=== PATIENT | female | born 1945 | race Caucasian/White ===

== ENCOUNTER 2019-05-08 05:21 | Inpatient (IN) ==
[2019-05-07 13:15] LABS: Basophils # 0.1 10*3/uL (0.0-0.2); Basophils % 0.8 % (0.0-0.8); Eosinophils # 0.1 10*3/uL (0.0-0.87); Eosinophils % 1.8 % (0.00-10.9); Hematocrit 36.2 VOL% (35.7-47.0); Hemoglobin 10.8 GM/DL (12.0-16.0); Immature Granulocytes % 0.6 %; Immature Granulocytes Absolute 0.04 #; Lymphocytes # 1.5 10*3/uL (1.4-4.0); Lymphocytes % 21.7 % (21.3-54.2); Mean Corpuscular HGB Conc 29.8 GM/DL (32-36); Mean Corpuscular Volume 91.2 FL (87-102); Mean Platelet Volume 11.4 FL (9.6-12.0); Monocytes % 7.5 % (1.7-12.7); Neutrophils % 67.6 % (38.7-73.9); Platelet Count 222 T/CUMM (130-400); Red Blood Count 3.97 MC/CUMM (3.8-5.5); Red Cell Distribution Width 14.9 % (9.3-17.3); White Blood Count 7.1 T/CUMM (4-12)
[2019-05-07 13:22] LABS: PT Patient Result 10.5 SECS; Partial Thromboplastin Time 26.2 SECS (0-40)
[2019-05-07 13:41] LABS: Calcium 8.7 MG/DL (8.5-10.1); Osmolality,Calculated 277.5 MOS/KG (273-304)
[2019-05-07 14:02] LABS: Apearance,Urine CLEAR (Clear); Bilirubin,Urine Negative (Negative); Blood, Urine Negative (Negative); Glucose,Urine (UA) Negative (Negative); Ketones,Urine Negative (Negative); Mucus,Urine Occasional /LPF (Occasional); Nitrite,Urine Negative (Negative); Protein,Urine Negative; RBC,Urine <1 /HPF (0-4); Squamous Epithelial Cell,Urine Occasional /HPF (0-10); Urine Color Yellow (Yellow); Urine Specific Gravity 1.017 (1.001-1.035); Urine Urobilinogen < 2.0 EU/DL (0.2-1.0); WBC,Urine 7 /HPF (0-6)
[~2019-05-08 05:21] MED LIST: CEFUROXIME INJ 1,500 MG in SYRINGE 1 EACH IV ONE; PAPAVERINE 60 MG/2 ML VIAL ONE; SODIUM CHLORIDE 0.9% 1,000 ML IV PRN; TISSUE ADHESIVE 1 EACH APPLICATOR TOP ONE; VANCOMYCIN 1,000 MG VIAL ONE
[2019-05-08] MEDS ORDERED: FAMOTIDINE 20 MG TABLET PO ONE (06:00)
[2019-05-08] MEDS ORDERED: DIAZEPAM 5 MG TABLET PO ONE (06:00)
[2019-05-08] MEDS ORDERED: MIDAZOLAM 10 MG/2 ML VIAL ONE (06:06)
[2019-05-08] MEDS ORDERED: PHENYLEPHRINE DRIP 20 MG/250 ML PREMIX IV ONE (06:06)
[2019-05-08] MEDS ORDERED: ACETAMINOPHEN 1,000 MG/100 ML VIAL IV ONE (06:07)
[2019-05-08] MEDS ORDERED: NITROGLYCERIN DRIP 50 MG/250 ML BOTTLE IV ONE ×2 (06:07→12:10)
[2019-05-08] MEDS ORDERED: HEPARIN/NACL 0.9% 2 UNITS/ML 500 ML IV ONE (06:08)
[2019-05-08] MEDS ORDERED: FAMOTIDINE 20 MG TABLET ONE (06:13)
[2019-05-08] MEDS ORDERED: DIAZEPAM 5 MG TABLET ONE (06:13)
[2019-05-08] MEDS ORDERED: LACTATED RINGERS 1,000 ML IV SCH (06:30)
[2019-05-08] MEDS ORDERED: CEFUROXIME 1,500 MG VIAL ONE (07:11)
[2019-05-08 08:10] LABS: ABG Base Excess -2.3 MMOL/L (-2.5-2.5); ABG HCO3 21.7 MMOL/L (20-26); ABG Oxygen Saturation 97.4 % (95-100); ABG PCO2 34.6 MM HG (35-48); ABG PH 7.416 (7.35-7.45); ABG PO2 493.1 MM HG (80-95); ABG TCO2 22.8 MMOL/L (23-27); Glucose Heart Surgery 86 MG/DL (74-106); Hemoglobin Heart Surgery 9.9 G/DL (12.0-16.0); Ionized Calcium Arterial 1.08 MMOL/L (1.21-1.46); PCO2 Patient Temp Arterial 34.6 MMHG; PH Patient Temp Arterial 7.416; PO2 Patient Temp Arterial 493.1 MM HG; Patient Temperature 37 CELCIUS; Potassium Heart/CVR 4.1 MMOL/L (3.5-5.1); Sodium Heart/CVR 138 MMOL/L (135-145)
[2019-05-08 08:11] LABS: Apearance,Urine CLEAR (Clear); Bilirubin,Urine Negative (Negative); Blood, Urine Small mg/dL (Negative); Glucose,Urine (UA) Negative (Negative); Ketones,Urine Negative (Negative); Nitrite,Urine Negative (Negative); Protein,Urine Negative; RBC,Urine <1 /HPF (0-4); Urine Color Straw (Yellow); Urine Specific Gravity 1.008 (1.001-1.035); Urine Urobilinogen < 2.0 EU/DL (0.2-1.0); WBC,Urine 1 /HPF (0-6)
[2019-05-08 09:39] LABS: Hematocrit Heart Surgery 20.1 PERCENT (37-47); PH Patient Temp Venous 7.415; PO2 Patient Temp Venous 35.6 MM HG; Potassium Heart/CVR 4.9 MMOL/L (3.5-5.1); VBG Base Excess -1.7 MEQ/L (0-4); VBG HCO3 22.7 MEQ/L (24-28); VBG Oxygen Saturation 72.8 %; VBG PCO2 38.5 MMHG (41-51); VBG PH 7.385; VBG PO2 40.9 MMHG (17-40)
[2019-05-08 09:40] LABS: Hemoglobin Heart Surgery 6.4 G/DL (12.0-16.0)
[2019-05-08] MEDS ORDERED: PHENYLEPHRINE DRIP 40 MG/250 ML PREMIX IV ONE (09:45)
[2019-05-08] MEDS ORDERED: ALBUMIN 5% 12.5 GM/250 ML VIAL IV ONE (09:45)
[2019-05-08] MEDS ORDERED: THROMBIN TOPICAL (RECOMBINANT) 5,000 UNIT VIAL TOP ONE (10:08)
[2019-05-08] MEDS ORDERED: DEXTROSE 5% KCL 20 MEQ 20 MEQ/1,000 ML BAG IV ONE (10:11)
[2019-05-08] MEDS ORDERED: SODIUM BICARBONATE 50 MEQ/50 ML VIAL IV ONE (10:11)
[2019-05-08] MEDS ORDERED: MANNITOL 100 GM/500 ML BAG IV ONE (10:11)
[2019-05-08] MEDS ORDERED: ALBUMIN 25% 25 GM/100 ML VIAL IV ONE (10:11)
[2019-05-08] MEDS ORDERED: FUROSEMIDE 20 MG/2 ML VIAL ONE (10:12)
[2019-05-08] MEDS ORDERED: MAGNESIUM SULFATE 5 GM/10 ML VIAL IV ONE (10:12)
[2019-05-08] MEDS ORDERED: PROTAMINE SULFATE 250 MG/25 ML VIAL IV ONE (10:12)
[2019-05-08] MEDS ORDERED: methylPREDNISolone SOD SUC 1,000 MG/8 ML VIAL ONE (10:12)
[2019-05-08] MEDS ORDERED: HEPARIN 10,000 UNIT/10 ML VIAL ONE (10:12)
[2019-05-08 10:19] LABS: ABG Base Excess -2.8 MMOL/L (-2.5-2.5); ABG Oxygen Saturation 98.7 % (95-100); ABG PCO2 30.7 MM HG (35-48); ABG PH 7.439 (7.35-7.45); ABG TCO2 19.4 MMOL/L (23-27); Glucose Heart Surgery 243 MG/DL (74-106); Hematocrit Heart Surgery 23.9 PERCENT (37-47); Hemoglobin Heart Surgery 7.7 G/DL (12.0-16.0); Ionized Calcium Arterial 1.14 MMOL/L (1.21-1.46); PCO2 Patient Temp Arterial 30.7 MMHG; PH Patient Temp Arterial 7.439; Patient Temperature 37 CELCIUS; Potassium Heart/CVR 4.2 MMOL/L (3.5-5.1); Sodium Heart/CVR 131 MMOL/L (135-145)
[2019-05-08] MEDS ORDERED: ONDANSETRON 4 MG/2 ML VIAL IV PRN (11:05)
[2019-05-08] MEDS ORDERED: ALBUMIN 5% 12.5 GM in PREMIX 1 EACH IV PRN (11:05)
[2019-05-08] MEDS ORDERED: CHLORHEXIDINE 4% SOLN 118 ML BOTTLE TOP PRN (11:05)
[2019-05-08] MEDS ORDERED: DEXTROSE 50% 25 GM/50 ML VIAL IV PRN ×2 (11:05)
[2019-05-08] MEDS ORDERED: ACETAMINOPHEN 650 MG SUPP RECTAL PRN (11:05)
[2019-05-08] MEDS ORDERED: MAGNESIUM SULF RIDER 4 GM in PREMIX 1 EACH IV PRN (11:05)
[2019-05-08] MEDS ORDERED: MIDAZOLAM 2 MG/2 ML VIAL IV PRN (11:05)
[2019-05-08] MEDS ORDERED: CALCIUM CHLORIDE 1,000 MG/10 ML SYRINGE IV PRN (11:05)
[2019-05-08] MEDS: SODIUM CHLORIDE 0.45% 1,000 ML IV SCH (11:15)
[2019-05-08] MEDS ORDERED: EPINEPHrine 1 MG/ML VIAL ONE (11:23)
[2019-05-08] MEDS ORDERED: INSULIN REGULAR DRIP 100 ML IV SCH (11:30)
[2019-05-08] MEDS ORDERED: SODIUM CHLORIDE 0.45% 1,000 ML IV SCH (11:30)
[2019-05-08] MEDS ORDERED: CALCIUM CHLORIDE 1,000 MG/10 ML VIAL IV ONE (11:32)
[2019-05-08] MEDS ORDERED: hydrALAZINE 20 MG/1 ML VIAL ONE (11:32)
[2019-05-08] MEDS ORDERED: SEVOFLURANE 1 UNIT/15 MINUTE INH ONE (11:32)
[2019-05-08] MEDS ORDERED: ePHEDrine 50 MG/ML AMP ONE (11:32)
[2019-05-08] MEDS ORDERED: MINERAL OIL/PETROLATUM OPH OINT 3.5 GM TUBE ONE (11:32)
[2019-05-08] MEDS ORDERED: GLYCOPYRROLATE 0.4 MG/2 ML VIAL ONE (11:33)
[2019-05-08] MEDS ORDERED: ETOMIDATE 40 MG/20 ML VIAL IV ONE (11:33)
[2019-05-08] MEDS ORDERED: AMINOCAPROIC ACID 5,000 MG/20 ML VIAL ONE (11:33)
[2019-05-08] MEDS ORDERED: SODIUM CHLORIDE 0.9% 1,000 ML IV ONE (11:34)
[2019-05-08] MEDS ORDERED: ROCURONIUM 100 MG/10 ML VIAL IV ONE (11:34)
[2019-05-08] MEDS ORDERED: SODIUM CHLORIDE 0.9% 250 ML IV ONE (11:34)
[2019-05-08] MEDS ORDERED: LACTATED RINGERS 1,000 ML IV ONE (11:34)
[2019-05-08 11:37] LABS: Basophils # 0.1 10*3/uL (0.0-0.2); Basophils % 0.4 % (0.0-0.8); Eosinophils # 0.2 10*3/uL (0.0-0.87); Eosinophils % 1.1 % (0.00-10.9); Hematocrit 29.6 VOL% (35.7-47.0); Immature Granulocytes Absolute 0.14 #; Lymphocytes # 1.2 10*3/uL (1.4-4.0); Lymphocytes % 8.7 % (21.3-54.2); Mean Corpuscular HGB Conc 30.4 GM/DL (32-36); Mean Corpuscular Volume 91.6 FL (87-102); Mean Platelet Volume 10.9 FL (9.6-12.0); Monocytes % 1.2 % (1.7-12.7); Neutrophils % 87.6 % (38.7-73.9); Platelet Count 213 T/CUMM (130-400); Red Blood Count 3.23 MC/CUMM (3.8-5.5); Red Cell Distribution Width 14.6 % (9.3-17.3); White Blood Count 13.8 T/CUMM (4-12)
[2019-05-08 11:39] LABS: ABG Base Excess -4.8 MMOL/L (-2.5-2.5); ABG HCO3 20.5 MMOL/L (20-26); ABG Oxygen Saturation 98.1 % (95-100); ABG PCO2 42.9 MM HG (35-48); ABG PH 7.307 (7.35-7.45); ABG TCO2 19.4 MMOL/L (23-27); Glucose Heart Surgery 175 MG/DL (74-106); Hematocrit Heart Surgery 34.8 PERCENT (37-47); Hemoglobin Heart Surgery 11.3 G/DL (12.0-16.0); Potassium Heart/CVR 3.6 MMOL/L (3.5-5.1)
[2019-05-08] MEDS: SODIUM CHLORIDE 0.9% 250 ML IV PRN ×2 (11:40→12:00)
[2019-05-08 11:46] LABS: INR 1.1; PT Patient Result 11.6 SECS (9.6-12.2); Partial Thromboplastin Time 26.1 SECS (20.8-36.0)
[2019-05-08 11:53] LABS: Blood Urea Nitrogen 17 MG/DL (7-18); Calcium 9.6 MG/DL (8.5-10.1); Glucose 167 MG/DL (74-106); Osmolality,Calculated 282.5 MOS/KG (273-304)
[2019-05-08] MEDS ORDERED: NITROGLYCERIN DRIP 50 MG/250 ML BOTTLE IV PRN (12:34)
[2019-05-08] MEDS ORDERED: ASPIRIN CHEW 81 MG TABLET PO ONE (12:54)
[2019-05-08] MEDS: POTASSIUM CHLORIDE RIDER 20 MEQ in PREMIX 1 EACH IV PRN ×3 (13:02→20:10)
[2019-05-08] MEDS: INSULIN REGULAR 100 UNIT/ML IV PRN ×2 (14:25→16:24)
[2019-05-08] MEDS: POTASSIUM CHLORIDE RIDER 10 MEQ in PREMIX 1 EACH IV PRN ×2 (14:29→20:48)
[2019-05-08] MEDS ORDERED: LACTATED RINGERS 500 ML IV ONE (15:27)
[2019-05-08 15:49] LABS: ABG Base Excess -6.3 MMOL/L (-2.5-2.5); ABG HCO3 19.3 MMOL/L (20-26); ABG Oxygen Saturation 96.8 % (95-100); ABG PCO2 36.5 MM HG (35-48); ABG PH 7.327 (7.35-7.45); ABG TCO2 17.1 MMOL/L (23-27); Glucose Heart Surgery 190 MG/DL (74-106); Hematocrit Heart Surgery 37.1 PERCENT (37-47); Hemoglobin Heart Surgery 12.1 G/DL (12.0-16.0); Potassium Heart/CVR 3.6 MMOL/L (3.5-5.1)
[2019-05-08] MEDS ORDERED: KETOROLAC 15 MG/1 ML VIAL IV ONE (16:34)
[2019-05-08] MEDS: MORPHINE 4 MG/1 ML VIAL IV PRN (18:17)
[2019-05-08] MEDS: CEFUROXIME INJ 1,500 MG in SYRINGE 1 EACH IV SCH (18:44)
[2019-05-08] MEDS: MORPHINE 10 MG/1 ML VIAL IV PRN ×3 (19:09→23:12)
[2019-05-08 19:36] LABS: ABG Base Excess -4.7 MMOL/L (-2.5-2.5); ABG HCO3 20.6 MMOL/L (20-26); ABG Oxygen Saturation 96.2 % (95-100); ABG PH 7.342 (7.35-7.45); ABG TCO2 18.1 MMOL/L (23-27); Glucose Heart Surgery 131 MG/DL (74-106); Hemoglobin Heart Surgery 13.4 G/DL (12.0-16.0); Potassium Heart/CVR 3.8 MMOL/L (3.5-5.1)
[2019-05-08] MEDS: CHLORHEXIDINE 0.12% ORAL RINSE 60 ML BOTTLE SWISH/SPIT SCH (22:25)
[2019-05-09] MEDS: MORPHINE 10 MG/1 ML VIAL IV PRN ×6 (01:35→23:19)
[2019-05-09] MEDS: SODIUM CHLORIDE 0.45% 1,000 ML IV SCH (01:44)
[2019-05-09] MEDS: INSULIN REGULAR 100 UNIT/ML IV PRN (02:12)
[2019-05-09 06:30] LABS: Basophils % 0.2 % (0.0-0.8); Hematocrit 28.1 VOL% (35.7-47.0); Hemoglobin 8.7 GM/DL (12.0-16.0); Immature Granulocytes % 0.8 %; Immature Granulocytes Absolute 0.15 #; Lymphocytes # 0.5 10*3/uL (1.4-4.0); Lymphocytes % 2.9 % (21.3-54.2); Mean Corpuscular Volume 90.9 FL (87-102); Mean Platelet Volume 10.9 FL (9.6-12.0); Monocytes % 4.7 % (1.7-12.7); Neutrophils % 91.4 % (38.7-73.9); Platelet Count 190 T/CUMM (130-400); Red Blood Count 3.09 MC/CUMM (3.8-5.5); White Blood Count 17.8 T/CUMM (4-12)
[2019-05-09] MEDS ORDERED: DEXTROSE 50% 25 GM/50 ML VIAL IV PRN (06:36)
[2019-05-09] MEDS ORDERED: GLUCAGON 1 MG VIAL IM PRN (06:36)
[2019-05-09 06:42] LABS: Osmolality,Calculated 273.8 MOS/KG (273-304)
[2019-05-09] MEDS: CEFUROXIME INJ 1,500 MG in SYRINGE 1 EACH IV SCH ×2 (06:44→18:24)
[2019-05-09 06:48] LABS: Band Neutrophils 1 % (0-10); Hypochromasia 1+; Lymphocytes 1 % (20-55); Platelet Estimate Adequate; Segmented Neutrophils 96 % (50-85); Total Cells Counted 100
[2019-05-09] MEDS ORDERED: FUROSEMIDE 40 MG/4 ML VIAL IV ONE (06:57)
[2019-05-09] MEDS: MAGNESIUM SULF RIDER 2 GM in PREMIX 1 EACH IV PRN ×2 (07:43→09:44)
[2019-05-09] MEDS: METOPROLOL TARTRATE 25 MG TABLET PO SCH ×2 (08:50→20:17)
[2019-05-09] MEDS: FUROSEMIDE 40 MG TABLET PO SCH (08:51)
[2019-05-09] MEDS: CLOPIDOGREL 75 MG TABLET PO SCH (08:51)
[2019-05-09] MEDS: PANTOPRAZOLE 40 MG VIAL IV SCH (08:52)
[2019-05-09] MEDS: ASPIRIN EC 325 MG TABLET PO SCH (08:52)
[2019-05-09] MEDS: CHLORHEXIDINE 0.12% ORAL RINSE 60 ML BOTTLE SWISH/SPIT SCH ×2 (08:59→20:19)
[2019-05-09] MEDS ORDERED: METOPROLOL TARTRATE 50 MG TABLET PO SCH (09:00)
[2019-05-09] MEDS: INSULIN REGULAR 100 UNIT/ML SUBCUT SCH ×5 (09:13→22:31)
[2019-05-09] MEDS: BACLOFEN 10 MG TABLET PO PRN (16:46)
[2019-05-09] MEDS: MORPHINE 4 MG/1 ML VIAL IV PRN (16:47)
[2019-05-09] MEDS: GABAPENTIN 300 MG CAPSULE PO SCH (20:18)
[2019-05-09] MEDS: ATORVASTATIN 40 MG TABLET PO SCH (20:19)
[2019-05-09] MEDS: MELATONIN 3 MG TABLET PO PRN (23:21)
[2019-05-10] MEDS: INSULIN REGULAR 100 UNIT/ML SUBCUT SCH ×6 (00:06→20:37)
[2019-05-10] MEDS: MORPHINE 10 MG/1 ML VIAL IV PRN (03:33)
[2019-05-10 04:40] LABS: Basophils % 0.1 % (0.0-0.8); Eosinophils % 0.1 % (0.00-10.9); Hematocrit 27.6 VOL% (35.7-47.0); Hemoglobin 8.8 GM/DL (12.0-16.0); Immature Granulocytes % 0.6 %; Lymphocytes # 0.9 10*3/uL (1.4-4.0); Lymphocytes % 5.8 % (21.3-54.2); Mean Corpuscular HGB Conc 31.9 GM/DL (32-36); Mean Corpuscular Volume 89.9 FL (87-102); Mean Platelet Volume 11.6 FL (9.6-12.0); Monocytes % 6.2 % (1.7-12.7); Neutrophils % 87.2 % (38.7-73.9); Platelet Count 212 T/CUMM (130-400); Red Blood Count 3.07 MC/CUMM (3.8-5.5); Red Cell Distribution Width 15.1 % (9.3-17.3); White Blood Count 15.4 T/CUMM (4-12)
[2019-05-10 05:56] LABS: Calcium 8.4 MG/DL (8.5-10.1); Osmolality,Calculated 271.1 MOS/KG (273-304)
[2019-05-10] MEDS: PANTOPRAZOLE 40 MG VIAL IV SCH (08:40)
[2019-05-10] MEDS: MULTIVITAMIN (CENTRUM) TABLET PO SCH (08:40)
[2019-05-10] MEDS: LANSOPRAZOLE ODT 30 MG TABLET PO SCH (08:40)
[2019-05-10] MEDS: LEVOFLOXACIN 750 MG TABLET PO SCH (08:40)
[2019-05-10] MEDS: ASPIRIN EC 325 MG TABLET PO SCH (08:40)
[2019-05-10] MEDS: CLOPIDOGREL 75 MG TABLET PO SCH (08:40)
[2019-05-10] MEDS: GABAPENTIN 300 MG CAPSULE PO SCH ×2 (08:40→20:33)
[2019-05-10] MEDS: FUROSEMIDE 40 MG TABLET PO SCH (08:40)
[2019-05-10] MEDS: METOPROLOL TARTRATE 25 MG TABLET PO SCH ×2 (08:40→20:33)
[2019-05-10] MEDS: CHLORHEXIDINE 0.12% ORAL RINSE 60 ML BOTTLE SWISH/SPIT SCH ×2 (08:53→20:53)
[2019-05-10] MEDS: MORPHINE 4 MG/1 ML VIAL IV PRN ×2 (08:53→11:44)
[2019-05-10] MEDS: METOPROLOL TARTRATE 5 MG/5 ML VIAL IV SCH ×2 (13:13→13:23)
[2019-05-10] MEDS ORDERED: METOPROLOL TARTRATE 5 MG/5 ML VIAL IV ONE (13:58)
[2019-05-10] MEDS: ATORVASTATIN 40 MG TABLET PO SCH (20:33)
[2019-05-11] MEDS: INSULIN REGULAR 100 UNIT/ML SUBCUT SCH ×6 (00:23→20:50)
[2019-05-11 04:35] LABS: Basophils % 0.1 % (0.0-0.8); Hemoglobin 8.7 GM/DL (12.0-16.0); Immature Granulocytes % 0.7 %; Lymphocytes # 0.8 10*3/uL (1.4-4.0); Lymphocytes % 5.7 % (21.3-54.2); Mean Corpuscular HGB Conc 31.1 GM/DL (32-36); Mean Corpuscular Volume 89.5 FL (87-102); Monocytes % 5.2 % (1.7-12.7); Neutrophils % 88.3 % (38.7-73.9); Platelet Count 192 T/CUMM (130-400); Red Blood Count 3.13 MC/CUMM (3.8-5.5); Red Cell Distribution Width 14.8 % (9.3-17.3); White Blood Count 13.5 T/CUMM (4-12)
[2019-05-11 04:49] LABS: Calcium 8.8 MG/DL (8.5-10.1)
[2019-05-11] MEDS: METOPROLOL TARTRATE 25 MG TABLET PO SCH ×2 (09:22→20:44)
[2019-05-11] MEDS: LEVOFLOXACIN 750 MG TABLET PO SCH (09:22)
[2019-05-11] MEDS: CLOPIDOGREL 75 MG TABLET PO SCH (09:22)
[2019-05-11] MEDS: GABAPENTIN 300 MG CAPSULE PO SCH ×2 (09:22→20:43)
[2019-05-11] MEDS: FUROSEMIDE 40 MG TABLET PO SCH (09:22)
[2019-05-11] MEDS: MULTIVITAMIN (CENTRUM) TABLET PO SCH (09:22)
[2019-05-11] MEDS: LANSOPRAZOLE ODT 30 MG TABLET PO SCH (09:22)
[2019-05-11] MEDS: PANTOPRAZOLE 40 MG VIAL IV SCH (09:23)
[2019-05-11] MEDS: ASPIRIN EC 325 MG TABLET PO SCH (09:23)
[2019-05-11] MEDS: CHLORHEXIDINE 0.12% ORAL RINSE 60 ML BOTTLE SWISH/SPIT SCH ×2 (10:36→20:49)
[2019-05-11] MEDS: POTASSIUM CHLORIDE RIDER 10 MEQ in PREMIX 1 EACH IV PRN ×3 (10:37→13:16)
[2019-05-11] MEDS: MORPHINE 4 MG/1 ML VIAL IV PRN ×2 (10:38→20:44)
[2019-05-11] MEDS: ATORVASTATIN 40 MG TABLET PO SCH (20:43)
[2019-05-11] MEDS: BACLOFEN 10 MG TABLET PO PRN (22:21)
[2019-05-12] MEDS: MORPHINE 4 MG/1 ML VIAL IV PRN (02:21)
[2019-05-12] MEDS: INSULIN REGULAR 100 UNIT/ML SUBCUT SCH ×4 (08:51→22:08)
[2019-05-12] MEDS: MULTIVITAMIN (CENTRUM) TABLET PO SCH (09:15)
[2019-05-12] MEDS: ASPIRIN EC 325 MG TABLET PO SCH (09:15)
[2019-05-12] MEDS: CLOPIDOGREL 75 MG TABLET PO SCH (09:15)
[2019-05-12] MEDS: LEVOFLOXACIN 750 MG TABLET PO SCH (09:15)
[2019-05-12] MEDS: GABAPENTIN 300 MG CAPSULE PO SCH ×2 (09:15→21:52)
[2019-05-12] MEDS: FUROSEMIDE 40 MG TABLET PO SCH (09:15)
[2019-05-12] MEDS: METOPROLOL TARTRATE 25 MG TABLET PO SCH ×2 (09:16→21:52)
[2019-05-12] MEDS: PANTOPRAZOLE 40 MG VIAL IV SCH (09:18)
[2019-05-12] MEDS: CHLORHEXIDINE 0.12% ORAL RINSE 60 ML BOTTLE SWISH/SPIT SCH ×2 (09:20→21:58)
[2019-05-12] MEDS: LANSOPRAZOLE ODT 30 MG TABLET PO SCH (09:20)
[2019-05-12] MEDS: ATORVASTATIN 40 MG TABLET PO SCH (21:53)
[2019-05-13 06:13] LABS: Basophils % 0.2 % (0.0-0.8); Eosinophils # 0.2 10*3/uL (0.0-0.87); Eosinophils % 1.7 % (0.00-10.9); Hematocrit 31.1 VOL% (35.7-47.0); Hemoglobin 9.4 GM/DL (12.0-16.0); Immature Granulocytes % 1.6 %; Immature Granulocytes Absolute 0.16 #; Lymphocytes # 1.7 10*3/uL (1.4-4.0); Lymphocytes % 17.4 % (21.3-54.2); Mean Corpuscular HGB Conc 30.2 GM/DL (32-36); Mean Corpuscular Volume 90.9 FL (87-102); Mean Platelet Volume 10.5 FL (9.6-12.0); Monocytes % 8.1 % (1.7-12.7); Platelet Count 245 T/CUMM (130-400); Red Blood Count 3.42 MC/CUMM (3.8-5.5); White Blood Count 9.8 T/CUMM (4-12)
[2019-05-13 06:43] LABS: Calcium 8.6 MG/DL (8.5-10.1); Osmolality,Calculated 282.3 MOS/KG (273-304)
[2019-05-13] MEDS: INSULIN REGULAR 100 UNIT/ML SUBCUT SCH ×4 (08:55→23:35)
[2019-05-13] MEDS: ASPIRIN EC 325 MG TABLET PO SCH (09:32)
[2019-05-13] MEDS: MULTIVITAMIN (CENTRUM) TABLET PO SCH (09:32)
[2019-05-13] MEDS: CLOPIDOGREL 75 MG TABLET PO SCH (09:33)
[2019-05-13] MEDS: LANSOPRAZOLE ODT 30 MG TABLET PO SCH (09:33)
[2019-05-13] MEDS: GABAPENTIN 300 MG CAPSULE PO SCH ×2 (09:33→23:28)
[2019-05-13] MEDS: METOPROLOL TARTRATE 25 MG TABLET PO SCH ×2 (09:34→23:27)
[2019-05-13] MEDS: FUROSEMIDE 40 MG TABLET PO SCH (09:34)
[2019-05-13] MEDS: LEVOFLOXACIN 750 MG TABLET PO SCH (09:34)
[2019-05-13] MEDS: PANTOPRAZOLE 40 MG VIAL IV SCH (09:36)
[2019-05-13] MEDS: CHLORHEXIDINE 0.12% ORAL RINSE 60 ML BOTTLE SWISH/SPIT SCH ×2 (09:37→23:28)
[2019-05-13] MEDS: ATORVASTATIN 40 MG TABLET PO SCH (23:27)
[2019-05-14] MEDS: MELATONIN 3 MG TABLET PO PRN (00:53)
[2019-05-14] MEDS ORDERED: POTASSIUM CHLORIDE 20 MEQ TABLET PO ONE (02:28)
[2019-05-14 04:48] LABS: Basophils # 0.1 10*3/uL (0.0-0.2); Basophils % 0.6 % (0.0-0.8); Eosinophils # 0.3 10*3/uL (0.0-0.87); Eosinophils % 2.1 % (0.00-10.9); Hematocrit 30.1 VOL% (35.7-47.0); Hemoglobin 9.5 GM/DL (12.0-16.0); Immature Granulocytes % 2.6 %; Immature Granulocytes Absolute 0.32 #; Lymphocytes # 2.7 10*3/uL (1.4-4.0); Mean Corpuscular HGB Conc 31.6 GM/DL (32-36); Mean Corpuscular Volume 90.7 FL (87-102); Mean Platelet Volume 10.3 FL (9.6-12.0); Neutrophils % 64.7 % (38.7-73.9); Platelet Count 308 T/CUMM (130-400); Red Blood Count 3.32 MC/CUMM (3.8-5.5); Red Cell Distribution Width 15.1 % (9.3-17.3); White Blood Count 12.2 T/CUMM (4-12)
[2019-05-14 05:05] LABS: Calcium 8.5 MG/DL (8.5-10.1); Osmolality,Calculated 285.1 MOS/KG (273-304)
[2019-05-14] MEDS: CLOPIDOGREL 75 MG TABLET PO SCH (09:23)
[2019-05-14] MEDS: MULTIVITAMIN (CENTRUM) TABLET PO SCH (09:24)
[2019-05-14] MEDS: METOPROLOL TARTRATE 25 MG TABLET PO SCH ×2 (09:24→21:00)
[2019-05-14] MEDS: GABAPENTIN 300 MG CAPSULE PO SCH ×2 (09:24→21:00)
[2019-05-14] MEDS: LEVOFLOXACIN 750 MG TABLET PO SCH (09:24)
[2019-05-14] MEDS: FUROSEMIDE 40 MG TABLET PO SCH (09:24)
[2019-05-14] MEDS: ASPIRIN EC 325 MG TABLET PO SCH (09:24)
[2019-05-14] MEDS: LANSOPRAZOLE ODT 30 MG TABLET PO SCH (09:25)
[2019-05-14] MEDS: CHLORHEXIDINE 0.12% ORAL RINSE 60 ML BOTTLE SWISH/SPIT SCH ×2 (09:26→21:03)
[2019-05-14] MEDS: PANTOPRAZOLE 40 MG VIAL IV SCH (09:27)
[2019-05-14] MEDS: INSULIN REGULAR 100 UNIT/ML SUBCUT SCH ×3 (13:34→21:02)
[2019-05-14] MEDS: ATORVASTATIN 40 MG TABLET PO SCH (21:02)
[2019-05-15 05:23] LABS: Basophils # 0.1 10*3/uL (0.0-0.2); Basophils % 0.4 % (0.0-0.8); Eosinophils # 0.2 10*3/uL (0.0-0.87); Eosinophils % 2.1 % (0.00-10.9); Hematocrit 27.8 VOL% (35.7-47.0); Hemoglobin 8.7 GM/DL (12.0-16.0); Immature Granulocytes % 3.6 %; Lymphocytes # 2.2 10*3/uL (1.4-4.0); Lymphocytes % 19.5 % (21.3-54.2); Mean Corpuscular HGB Conc 31.3 GM/DL (32-36); Mean Corpuscular Volume 91.1 FL (87-102); Mean Platelet Volume 10.4 FL (9.6-12.0); Monocytes % 6.4 % (1.7-12.7); Red Blood Count 3.05 MC/CUMM (3.8-5.5); Red Cell Distribution Width 15.2 % (9.3-17.3); White Blood Count 11.2 T/CUMM (4-12)
[2019-05-15 05:25] LABS: Platelet Count 231 T/CUMM (130-400)
[2019-05-15 05:27] LABS: Calcium 7.9 MG/DL (8.5-10.1); Osmolality,Calculated 285.1 MOS/KG (273-304)
[2019-05-15] MEDS: ASPIRIN EC 325 MG TABLET PO SCH (08:06)
[2019-05-15] MEDS: INSULIN REGULAR 100 UNIT/ML SUBCUT SCH ×2 (08:06→12:29)
[2019-05-15] MEDS: MULTIVITAMIN (CENTRUM) TABLET PO SCH (08:06)
[2019-05-15] MEDS: LEVOFLOXACIN 750 MG TABLET PO SCH (08:07)
[2019-05-15] MEDS: GABAPENTIN 300 MG CAPSULE PO SCH (08:07)
[2019-05-15] MEDS: CLOPIDOGREL 75 MG TABLET PO SCH (08:07)
[2019-05-15] MEDS: FUROSEMIDE 40 MG TABLET PO SCH (08:07)
[2019-05-15] MEDS: METOPROLOL TARTRATE 25 MG TABLET PO SCH (08:07)
[2019-05-15] MEDS: LANSOPRAZOLE ODT 30 MG TABLET PO SCH (08:19)
[2019-05-15] MEDS: PANTOPRAZOLE 40 MG VIAL IV SCH (08:19)
[2019-05-15] MEDS: MAGNESIUM SULF RIDER 2 GM in PREMIX 1 EACH IV PRN ×2 (08:25→10:41)
[2019-05-15] MEDS: CHLORHEXIDINE 0.12% ORAL RINSE 60 ML BOTTLE SWISH/SPIT SCH (08:33)
[2019-05-15 12:05] VITALS: BP 103/47
== END 2019-05-15 13:30 | disposition home health service (06) | DRG 236 ==
LOC: N.OR 05:21 → N.SDSINP 05:23 → EDSTATUS 07:30 → N.CVR 10:52 → N.TELES 05-09 14:11
PROVIDERS: ADMIT Thoracic Surgery (Cardiothoracic Vascular Surgery); ATTEND Thoracic Surgery (Cardiothoracic Vascular Surgery)